=== PATIENT | male | born 1945 | race Caucasian/White ===

== ENCOUNTER → 2019-05-25 | Outpatient (CLI) | payer MEDICARE, OTHER ==
--- NOTE | 2019-05-25 15:52 | US ---
EXAMINATION TYPE: US kidneys/renal and bladder DATE OF EXAM: 05/25/2019 COMPARISON: NONE CLINICAL HISTORY: R36.1 Hematospermia. EXAM MEASUREMENTS: Right Kidney: 9.8 x 4.6 x 5.5 cm Left Kidney: 11.3 x 5.9 x 5.7 cm Right Kidney: 1.9 x 2.0 x 2.0 cm cyst Left Kidney: Fullness of the left renal pelvis, mild hydronephrosis suspected. Bladder: wnl No nephrolithiasis is seen. No masses are identified. The urinary bladder is anechoic. Bilateral u reteral jets are seen. IMPRESSION: 1. Fullness of the left renal pelvis is seen with suspicion for mild left hydronephrosis. 2. Benign-appearing 2.0 cm right renal cyst.
== END | disposition home or self-care (01) ==
LOC: RADUSWWP 14:49
PROVIDERS: ATTEND Urology
DX: R36.1 Hematospermia (principal)
CPT/HCPCS: 76770

== ENCOUNTER → 2020-07-14 | Outpatient (CLI) | payer MEDICARE, OTHER ==
--- NOTE | 2020-07-14 12:09 | P.STRESS ---
- Stress Test Note Stress Test Results/Findings: Exam Performed: stress echo exercise Exam Date: 07/14/20 Reason for Exam: PRE-SURGICAL Height: 5 ft 10 in Weight: 81.647 kg Protocol: EXERCISE STRESS ECHO Stage: III Duration of Exercise: 7:00 Resting Heart Rate: 70 Resting Blood Pressure: 123/74 Maximum Achieved Heart Rate: 145 Maximum Achieved Blood Pressure: 199/54 85% PMHR: 122 100% PMHR: 143 METS: 8.5 Technologist Comment: Stress Test Results/Findings: Patient underwent exercise stress echo with a [place] protocol treadmill stress t est. Patient exercised into Stage 3 for a total of 7 minutes reaching a total of 8.5 METS. Patient's maximum heart rate was 145 which represented 100 % age- predicted maximum heart rate. Stress EKG portion: At baseline patient's EKG showed normal sinus rhythm, normal axis, nonspecific T-wave inversions in aVL. At peak exercise, EKG showed nonspecific 0.[address] depressions in the inferior leads, occasional PVCs. Stress echo portion: 2-D echocardiogram was performed in the parasternal long, personal short, apical 2 and apical four-chamber views at rest, peak exercise and in recovery. At baseline, echocardiogram showed left ventricular ejection fraction 60 % without wall motion abnormalities. With peak exercise, echocardiogram shows improvement in left ventricular ejection fraction, increase contractility, decrease in left ventricular dimension without wall motion abnormalities consistent with a normal response to exercise. Conclusions: 1. Normal EKG and echo response to exercise without evidence of inducible ischemia. 2. Good exercise capacity.
--- NOTE | 2020-07-14 13:36 | ECHOS ---
Stress Test Results/Findings: Exam Performed: stress echo exercise Exam Date: 07/14/20 Reason for Exam: PRE-SURGICAL Height: 5 ft 10 in Weight: 81.647 kg Protocol: EXERCISE STRESS ECHO Stage: III Duration of Exercise: 7:00 Resting Heart Rate: 70 Resting Blood Pressure: 123/74 Maximum Achieved Heart Rate: 145 Maximum Achieved Blood Pressure: 199/54 85% PMHR: 122 100% PMHR: 143 METS: 8.5 Technologist Comment: Stress Test Results/Findings: Patient underwent exercise stress echo with a [place] protocol treadmill stress test. Patient exercised into Stage 3 for a total of 7 minutes reaching a total of 8.5 METS. Patient's maximum heart rate was 145 which represented 100 % age- predicted maximum heart rate. Stress EKG portion: At baseline patient's EKG showed normal sinus rhythm, normal axis, nonspecific T-wave inversions in aVL. At peak exercise, EKG showed nonspecific 0.[address] depressions in the inferior leads, occasional PVCs. Stress echo portion: 2-D echocardiogram was performed in the parasternal long, personal short, apical 2 and apical four-chamber views at rest, peak exercise and in recovery. At baseline, echocardiogram showed left ventricular ejection fraction 60 % without wall motion abnormalities. With peak exercise, echocardiogram shows improvement in left ventricular ejection fraction, increase contractility, decrease in left ventricular dimension without wall motion abnormalities consistent with a normal response to exercise. Conclusions: 1. Normal EKG and echo response to exercise without evidence of inducible ischemia. 2. Good exercise capacity. MTDD
== END | disposition home or self-care (01) ==
LOC: RADNMMAIN 08:57
PROVIDERS: ATTEND Internal Medicine
DX: Z01.818 Encounter for other preprocedural examination (principal); I10 Essential (primary) hypertension; E78.5 Hyperlipidemia, unspecified; E11.9 Type 2 diabetes mellitus without complications
CPT/HCPCS: 93351

== ENCOUNTER → 2022-11-14 | Outpatient (CLI) | payer MEDICARE, OTHER ==
--- NOTE | 2022-11-14 16:30 | P.SLEEP ---
History of Present Illness DATE: 11/14/2022 CONSULTATION/NEW PATIENT EVALUATION HISTORY OF PRESENT ILLNESS/SLEEP-WAKE EVALUATION: 77 year old gentleman had been evaluated in the sleep center for obstructive sleep apnea hypopnea syndrome. Patient has history of obstructive sleep apnea for about 20 years. Patient did not have sleep study since that time. CPAP unit is old. Patient does not use CPAP equipment every night. SLEEP SCHEDULE: Usually sleep schedule from 11-12 midnight until 6 AM 7 days a week. FALLING ASLEEP: No problems with falling asleep. DURING SLEEP: Patient has snoring even well use CPAP equipment. Awakenings with dry mouth and nocturia. Restless leg symptoms No history of hypnogogical hallucinations, sleep paralysis, or cataplexy. DURING THE DAY/WAKE STATE: In the morning patient wake up tired, has problems with memory. [place] sleepiness scale i increased to 12, indicates sleepiness. Usually patient doesn't take naps although. PAST MEDICAL HISTORY: Hypertension, depression, hyperlipidemia, acid reflux. PAST SURGICAL HISTORY: Bilateral knee replacement, hernia repair, right hip surgery. MEDICATIONS: Amlodipine 5 mg once a day, benazepril 10 mg once a day, hydrochlorothiazide 25 mg once a day, Zoloft 100 mg once a day, Requip, simvastatin 40 mg once a day, omeprazole 20 mg once a day, gabapentin 600 mg twice a day, trazodone 50 mg as needed. SOCIAL HISTORY: Positive for smoking for about 25 years up to one and a half pack a day, quit 40 years ago , alcohol consumption regularly. FAMILY HISTORY: Hypertension. REVIEW OF SYSTEMS: Snoring, awakenings from sleep. No fevers. No double vision. No recent chest pain. No shortness of breath. No abdominal pain. No bleeding episodes. No blood in urine. No seizure episodes. PHYSICAL EXAMINATION: GENERAL: A pleasant patient without any distress. VITAL SIGNS: BP 113/65 , HR 66 , RR 16 , weight 178.6 pounds, height 5 foot 7 inches, body mass index 27.8 . HEENT: PERRLA, EOMI. Evaluation of oropharynx showed tongue protrudes midline, low position of soft palate Mallampati 4. NECK: Supple. No JVD. Thyroid is not palpable. 16 inches in circumference. LUNGS: Clear to percussion and to auscultation. Good air exchange. No wheezing or rhonchi. HEART: S1, S2 regular. No murmurs, gallops or rubs. ABDOMEN: Soft and nontender. Bowel sounds are present. No organomegaly appreciated. EXTREMITIES: No clubbing or cyanosis. CASING MACHINE OPERATOR: Awake, alert, and oriented x3. Cranial nerves 2 to 7 intact. There is no fasciculation or atrophy noted. No focal deficits observed. ASSESSMENT: 1. Obstructive sleep apnea hypopnea syndrome diagnosed about 20 years ago. Results of previous sleep studies not available. CPAP unit is old. Snoring, awakenings from sleep, extremely low position of soft palate Mallampati 4. Obstructive sleep apnea-hypopnea syndrome. 2. Hypertension. 3. Depression. 4. Restless leg syndrome. 5 acid reflux. 6 . Hyperlipidemia. 7. Status post bilateral knee replacement. 8. Status post right hip surgery. 9 . Status post hernia repair. PLAN: 1. Polysomnography for evaluation of patient's breathing during sleep at the present time. 2. CPAP/BiPAP titration if sleep study confirms obstructive sleep apnea- hypopnea syndrome. 3. Preferable position during sleep on the side. 4. No driving if patient feels any sleepiness. Patient is aware of civil and criminal liability for unsafe driving. 5. Sleep hygiene with regular sleep time for at least 7.5-8 hours. 6. Watching weight. Thank you very much for referring this patient for consultation. Sincerely, Shiva Stack MD, PhD, FAASM. Diplomat of [place] [employer], Sleep Medicine Board by [place] [employer] [place] [employer] [facility] Sleep Note - Sleep Note Sleep Note: Temperature: Pulse Rate: Respiratory Rate: Blood Pressure: SpO2: Height: Weight: BMI: Neck Circumference:
== END ==
LOC: SLEEP 14:28
PROVIDERS: ATTEND Internal Medicine
DX: G47.33 Obstructive sleep apnea (adult) (pediatric) (principal); I10 Essential (primary) hypertension; F32.A Depression, unspecified; G25.81 Restless legs syndrome; K21.9 Gastro-esophageal reflux disease without esophagitis; E78.5 Hyperlipidemia, unspecified; Z96.652 Presence of left artificial knee joint; Z96.651 Presence of right artificial knee joint; Z98.890 Other specified postprocedural states; Z99.89 Dependence on other enabling machines and devices; Z79.899 Other long term (current) drug therapy
CPT/HCPCS: 99211

== ENCOUNTER → 2023-08-18 | Outpatient (CLI) | payer MEDICARE ==
[2023-08-18 15:12] LABS: HCT 43.7 % (39.6-50.0); HGB 14.4 g/dL (13.0-17.0); MCH 30.1 pg (27.0-32.0); MCV 91.2 FL (80.0-97.0); NRBC Per 100 WBC 0 X 10*3/uL (0.00-0.01); Platelet Count 145 X 10*3/uL (140-440); RBC 4.79 X 10*6/uL (4.40-5.60); RDW 12.4 % (11.5-14.5); WBC 3.71 X 10*3/uL (4.50-10.00)
[2023-08-18 16:26] LABS: ALT 32 U/L (10-49); AST 29 U/L (14-35); Albumin 4.4 g/dL (3.8-4.9); Albumin/Globulin Ratio 1.83 Ratio (1.60-3.17); Alkaline Phosphatase 82 U/L (41-126); Blood Urea Nitrogen 23.6 mg/dL (9.0-27.0); Calcium 9.3 mg/dL (8.7-10.3); Carbon Dioxide 28.2 mmol/L (21.6-31.8); Chloride 103 mmol/L (96-109); Globulin 2.4 g/dL (1.6-3.3); Glucose 94 mg/dL (70-110); Potassium 4.4 mmol/L (3.5-5.5); Sodium 141 mmol/L (135-145); Total Bilirubin 0.6 mg/dL (0.3-1.2); Total Protein 6.8 g/dL (6.2-8.2); VLDL Calculation 14.52 mg/dL (5.00-40.00)
== END | disposition home or self-care (01) ==
LOC: LABWHC1 11:12
PROVIDERS: ATTEND Internal Medicine
DX: I10 Essential (primary) hypertension (principal); E78.2 Mixed hyperlipidemia; G25.81 Restless legs syndrome; K21.9 Gastro-esophageal reflux disease without esophagitis
CPT/HCPCS: 36415; 80053; 80061; 85027

== ENCOUNTER 2024-07-06 19:16 | Emergency (ER) | payer MEDICARE, OTHER ==
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
[2024-07-06 21:02] VITALS: BP 125/70; PULSE 70; RESP 18; TEMP 98.4
== END 2024-07-06 21:04 | disposition home or self-care (01) ==
LOC: EC 19:16
DX: S42.032A Displaced fracture of lateral end of left clavicle, initial encounter for closed fracture (principal); V89.2XXA Person injured in unspecified motor-vehicle accident, traffic, initial encounter
CPT/HCPCS: 70450; 72125; 99284